=== PATIENT | male | born 1965 | race Caucasian/White ===

== ENCOUNTER 2016-07-08 08:46 | Emergency (ER) | payer BC ==
[2016-07-08 09:09] VITALS: BP 127/80
--- NOTE | 2016-07-08 09:27 | EDM.PDOC ---
ED HPI Trauma - General Chief Complaint: Lower Extremity Injury/Pain Stated Complaint: RIGHT LEG INJURY Time Seen by Provider: 07/08/16 09:22 Source: Reports: Patient History Limitations: Reports: No limitations - History of Present Illness INITIAL COMMENTS - FREE TEXT/NARRATIVE: 51-year-old male reports that he was in the coronal wrestling with a catheter this morning when he slipped on them and alert and essentially did the splits. He still felt a sudden popping tearing severe pain in the posterior aspect of his right thigh and was able to hobble back to the house where he called his . Currently he has severe pain in the posterior aspect of his right thigh. He is able to weight-bear although very gingerly on his tippy toes. Patient denies falling or developing any other injuries. Symptom Onset Date: 07/08/16 Symptom Onset Time: 07:10 Occurred When: this morning Occurred Where: home Method of Injury: other (Sensory slipped in mud and maneuver causing the splits essentially with acute injury to the posterior right thigh.) Severity: moderate Pain/Injury Location: Reports: upper extremity, right Consciousness: Reports: no loss of consciousness (Right posterior thigh), remembers incident, remembers coming to hosp Associated Symptoms: Reports: no other symptoms, trouble walking Allergies/ADRs: Allergies No Known Allergies Allergy (Verified 07/08/16 09:02) Home Medications: Ambulatory Orders Omeprazole [Prilosec] 20 mg PO DAILY 04/30/15 [Confirmed 07/08/16] Celecoxib [CeleBREX] 50 mg PO DAILY 07/08/16 [Confirmed 07/08/16] oxyCODONE HCl/Acetaminophen [Percocet 10-325 mg Tablet] 1 - 2 each PO Q4HR #24 tablet 07/08/16 Past Medical History - Past Health History Medical/Surgical History: Denies Medical/Surgical History Gastrointestinal History: Reports: GERD Musculoskeletal History: Reports: Osteoarthritis Social & Family History - Tobacco Use Smoking Status *Q: Never Smoker - Caffeine Use Caffeine Use: Reports: None - Recreational Drug Use Recreational Drug Use: No - Living Situation & Occupation Living situation: Reports: Occupation: employed (Self-employed [employer].) Review of Systems - Review of Systems Review Of Systems: See Below Constitutional: Reports: no symptoms Eyes: Reports: no symptoms Ears: Reports: no symptoms Nose: Reports: no symptoms Mouth/Throat: Reports: no symptoms Respiratory: Reports: No Symptoms Cardiovascular: Reports: no symptoms GI/Abdominal: Reports: No symptoms Genitourinary: Reports: no symptoms Musculoskeletal: Reports: no symptoms Skin: Reports: no symptoms Neurological: Reports: No Symptoms Psychiatric: Reports: no symptoms Trauma Exam - Physical Exam Exam: See Below Exam Limited By: No limitations General Appearance: Reports: alert, WD/WN, moderate distress Head: Reports: atraumatic, normocephalic Neck: Reports: non-tender, full range of motion, normal alignment, normal inspection Respiratory Exam: Reports: no respiratory distress, lungs clear, normal breath sounds, no accessory muscle use, chest non-tender Cardiovascular: Reports: normal peripheral pulses, regular rate, rhythm, no edema, no gallop, no murmur Back: Reports: full range of motion, normal inspection, non-tender. Denies: CVA tenderness (R), CVA tenderness (L) Extremities: Reports: no pedal edema, other (Examination of his right leg was done with him lying prone. He has an obvious hematoma in the posterior mid 5 that is approximately 12 inches in length and 6 inches in width. It is exquisitely tender to palpation. He is able to flex the knee to 90 with a moderate amount of pain. Therefore he has suffered an incomplete tear of the medial hamstring muscular muscles.) Neurologic: Reports: legal word processor II-XII nml as tested, no motor/sensory deficits, alert , normal mood/affect, oriented x 3 Skin: Reports: Normal color, Warm/dry Course - Vital Signs Last Recorded V/S: Last Vital Signs Temp 36.1 C 07/08/16 09:04 Pulse 60 07/08/16 09:04 Resp 12 07/08/16 09:04 BP 127/80 07/08/16 09:04 Pulse Ox 100 07/08/16 09:04 - Orders/Labs/Meds Orders: Active Orders 24 hr Category Date Time Status Femur Min 2V Rt [CR] Stat Exams 07/08/16 09:22 Taken - Radiology Interpretation Free Text/Narrative:: 51-year-old male presents the ED with an acute injury to the posterior aspect of his right thigh. Since this occurred while slipping and near fall while out in the [facility] morning capping. The sudden change of direction caused him to strain his right posterior medial hamstring muscles. He is a large hematoma in the posterior mid thigh. He is able to fully flex the knee posteriorly indicating a partial tear although significant by the size of the hematoma. of note he is 280 pounds as well. Plan x-ray of the femur will be obtained. He will then be wrapped with 6 inch Lul wraps to allow ice pack to the area one half hour of every 4 hours for the next 2 days. Pain medication. We'll have him followup with orthopedic surgery in 10 days' time. - Re-Assessments/Exams Free Text/Narrative Re-Assessment/Exam: 07/08/16 10:05 x-ray of the right femur is normal. Treatment is Lul wrap along the posterior thigh on all day today and all night. Then usually on during the day and off at night. Suggest use of this for the next week to 10 days. Ice pack to the area for one half hour of every 4 hours today and tomorrow to reduce swelling. May place heat on the area after this for one half hour out of every 4 hours until swelling is gone. Pain medication as needed Percocet 10 / 325 mg one or 2 every 4-6 hours as needed. Crutch walking nonweightbearing until able to weight-bear without pain. Suggest followup with orthopedic surgeon Dr. Menon today in 10 days' time. Please call [phone] to arrange a followup appointment. Departure - Departure Time of Disposition: 10:06 Disposition: Home, Self-Care 01 Condition: fair Clinical Impression: Right hamstring muscle strain Prescriptions: oxyCODONE HCl/Acetaminophen [Percocet 10-325 mg Tablet] 1 - 2 each PO Q4HR #24 tablet Instructions: Muscle Strain Referrals: PCP,None [Primary Care Provider] - Forms: ED Department Discharge Additional Instructions: Evaluation in the emergency day in regards to acute injury to the posterior right thigh. Examination reveals strain of the medial or 2 hamstring muscles on the posterior medial or inside of her thigh. X-ray of the femur bone shows no fractures. Large hematomas appreciated in the posterior aspect of the hamstring muscles indicating partial tear of the muscles with active bleeding in the deep tissues. Treatment is Lul wrap on during the day and off at night. Ice pack to the area one half hour out of every 4 hours today and tomorrow to reduce further swelling. After this she may apply heat to the area to help liquefy the blood and clean up the mess in the muscles.. Nonweightbearing crutch walking until able to weight-bear without hardly any pain. Pain medication Percocet 10 325 mg tablets one to 2 every 4-6 hours for pain relief. Suggest followup with orthopedic surgery Dr. Menon to [place] in 10-14 days time. Please call [phone] to arrange appointment. - My Orders Last 24 Hours: My Active Orders 07/08/16 09:22 Femur Min 2V Rt [CR] Stat - Assessment/Plan Last 24 Hours: My Active Orders 07/08/16 09:22 Femur Min 2V Rt [CR] Stat
--- NOTE | 2016-07-08 10:47 | CR ---
Right femur: AP and lateral views of the right femur were obtained. Joint space within the right hip is preserved. Joint spaces within the right knee are preserved. No fracture or other bony abnormality is seen. Impression: 1. No abnormality is identified on two-view right femur study. Diagnostic code #1
== END 2016-07-08 11:02 | disposition home or self-care (01) ==
LOC: JD.ED 08:46
DX: S76.311A Strain of muscle, fascia and tendon of the posterior muscle group at thigh level, right thigh, initial encounter (principal); K21.9 Gastro-esophageal reflux disease without esophagitis; Z79.899 Other long term (current) drug therapy; W01.0XXA Fall on same level from slipping, tripping and stumbling without subsequent striking against object, initial encounter; Y92.009 Unspecified place in unspecified non-institutional (private) residence as the place of occurrence of the external cause
CPT/HCPCS: 73552-26-RT; 73552-RT; 99283

== ENCOUNTER 2020-03-07 09:29 | Emergency (ER) | payer BC ==
[2020-03-07 09:43] VITALS: BP 137/94; PULSE 73
[2020-03-07] MEDS ORDERED: Witch Hazel Medicated Pads 40/Jar TOP ONE (10:01)
--- NOTE | 2020-03-07 10:13 | EDM.PDOC ---
ED HPI GENERAL MEDICAL PROBLEM - General Chief Complaint: Gastrointestinal Problem Stated Complaint: RECTAL BLEEDING Time Seen by Provider: 03/07/20 09:39 Source of Information: Reports: Patient History Limitations: Reports: No Limitations - History of Present Illness INITIAL COMMENTS - FREE TEXT/NARRATIVE: The patient presents with rectal pain and bleeding. This all started on Wednesday with pain and he noticed a hemorrhoid. He has been using preparation H and that has not been helping. He did a sits bath last night and this morning the hemorrhoid started bleeding. He still has pain and now bleeding. He has no fever, chills, cough, congestion, runny nose, chest pain or shortness of breath. Onset: Gradual Duration: Week(s): Location: Reports: Other (rectal pain) Quality: Reports: Sharp Severity: Moderate Improves with: Reports: None Worsens with: Reports: None Associated Symptoms: Reports: No Other Symptoms Rectal Pain Score (Numeric/FACES): 5 - Related Data Allergies Allergy/AdvReac Type Severity Reaction Status Date / Time No Known Allergies Allergy Verified 10/01/18 14:25 Home Meds: Home Meds Omeprazole [Prilosec] 20 mg PO DAILY 04/30/15 [History] Celecoxib [CeleBREX] 50 mg PO BID 07/08/16 [History] Hydrocodone/Acetaminophen [Hydrocodone-Acetamin 5-325 mg] 1 - 2 each PO Q6HR PRN #20 tablet 10/01/18 [Rx] Penicillin V Potassium 500 mg PO Q6HR #40 tab 10/01/18 [Rx] Past Medical History - Past Health History Medical/Surgical History: Denies Medical/Surgical History Gastrointestinal History: Reports: GERD Musculoskeletal History: Reports: Osteoarthritis Social & Family History - Tobacco Use Tobacco Use Status *Q: Never Tobacco User - Caffeine Use Caffeine Use: Reports: None - Living Situation & Occupation Living situation: Reports: Occupation: Employed ED ROS GENERAL - Review of Systems Review Of Systems: See Below Constitutional: Reports: No Symptoms HEENT: Reports: No Symptoms Respiratory: Reports: No Symptoms Cardiovascular: Reports: No Symptoms Endocrine: Reports: No Symptoms GI/Abdominal: Reports: Other (rectal pain and bleeding) : Reports: No Symptoms ED EXAM, GI/ABD - Physical Exam Exam: See Below Exam Limited By: No Limitations General Appearance: Alert, No Apparent Distress Ears: Normal External Exam Nose: Normal Inspection Head: Atraumatic, Normocephalic Neck: Normal Inspection Respiratory/Chest: No Respiratory Distress, Lungs Clear, Normal Breath Sounds Cardiovascular: Regular Rate, Rhythm, No Edema, No Murmur GI/Abdominal Exam: Soft, Non-Tender, No Organomegaly, No Mass Rectal (Males) Exam: Hemorrhoids (where distal part looks thrombosed and proximal part has bleeding) Course - Vital Signs Last Recorded V/S: Last Vital Signs Temp 97.6 F 03/07/20 09:41 Pulse 73 03/07/20 09:41 Resp 16 03/07/20 09:41 BP 137/94 H 03/07/20 09:41 Pulse Ox 97 03/07/20 09:41 - Orders/Labs/Meds Orders: Active Orders 24 hr Category Date Time Status CBC WITH AUTO DIFF [HEME] Stat Lab 03/07/20 10:25 Results Labs: Laboratory Tests 03/07/20 Range/Units 10:25 WBC 5.30 (4.23-9.07) K/mm3 RBC 5.32 (4.63-6.08) M/mm3 Hgb 12.2 L (13.7-17.5) gm/dl Hct 39.5 L (40.1-51.0) % MCV 74.2 L D (79.0-92.2) fl MCH 22.9 L (25.7-32.2) pg MCHC 30.9 L (32.2-35.5) g/dl RDW Std Deviation 43.8 (35.1-43.9) fL Plt Count 231 D (163-337) K/mm3 MPV 10.2 (9.4-12.3) fl Neut % (Auto) 52.3 (34.0-67.9) % Lymph % (Auto) 32.6 (21.8-53.1) % [place] % (Auto) 11.9 (5.3-12.2) % Eos % (Auto) 2.6 (0.8-7.0) Baso % (Auto) 0.4 (0.1-1.2) % Neut # (Auto) 2.77 (1.78-5.38) K/mm3 Lymph # (Auto) 1.73 (1.32-3.57) K/mm3 [place] # (Auto) 0.63 (0.30-0.82) K/mm3 Eos # (Auto) 0.14 (0.04-0.54) K/mm3 Baso # (Auto) 0.02 (0.01-0.08) K/mm3 Meds: Medications Discontinued Medications Generic Name Dose Route Start Last Admin Trade Name Trav PRN Reason Stop Dose Admin Witch Vitaly 1 pad 03/07/20 10:01 Tucks TOP 03/07/20 10:02 ONETIME ONE - Re-Assessments/Exams Free Text/Narrative Re-Assessment/Exam: 03/07/20 10:[address] Bautista and she can see him tomorrow. Someone from her office will call the patient. She wants him on sits baths, stool softener, steroid suppository, and tucks pads. I called [facility] pharmacy and they make rectal rockets with hydrocortisone and lidocaine. She also wanted a CBC checked so I will check that now. 03/07/20 10:47 His Hgb was good at 12.2. Departure - Departure Time of Disposition: 10:45 Disposition: Home, Self-Care 01 Condition: Good Clinical Impression: Hemorrhoid Qualifiers: Hemorrhoid type: unspecified Qualified Code(s): K64.9 - Unspecified hemorrhoids - Discharge Information *PRESCRIPTION DRUG MONITORING PROGRAM REVIEWED*: Not Applicable *COPY OF PRESCRIPTION DRUG MONITORING REPORT IN PATIENT PRABHAKAR: Not Applicable Referrals: PCP,None [Primary Care Provider] - Lily-Jaymie Mcintyre MD [Physician] - 1 Day Forms: ED Department Discharge Additional Instructions: Drink plenty of fluids. Take a stool softener like colace. Use Tucks pads with witch vitaly and follow label instructions. Do sits baths at 2 to 3 times per day or after every bowel movement. Use the rectal rocket rectally at night. You can start it when you get home today. Someone from Dr Bautista's office will be calling you today for an appointment tomorrow. If you do not hear from them by 2pm today give her office a call at . Please return if you are worse. Sepsis Event Note (ED) - Evaluation Sepsis Screening Result: No Definite Risk - Focused Exam Vital Signs: Vital Signs Temp Pulse Resp BP Pulse Ox 03/07/20 09:41 97.6 F 73 16 137/94 H 97 - My Orders Last 24 Hours: My Active Orders 03/07/20 10:25 CBC WITH AUTO DIFF [HEME] Stat - Assessment/Plan Last 24 Hours: My Active Orders 03/07/20 10:25 CBC WITH AUTO DIFF [HEME] Stat
== END 2020-03-07 10:58 | disposition home or self-care (01) ==
LOC: JD.ED 09:29
DX: K64.9 Unspecified hemorrhoids (principal); K21.9 Gastro-esophageal reflux disease without esophagitis; M19.90 Unspecified osteoarthritis, unspecified site; Z79.899 Other long term (current) drug therapy
CPT/HCPCS: 36415; 85025; 99283; A9270

== ENCOUNTER 2023-04-24 10:11 | Emergency (ER) | payer BC ==
[2023-04-24] MEDS ORDERED: Acetaminophen/HYDROcodone 325-5 MG Tab PO ONE (10:48)
[2023-04-24 13:27] VITALS: BP 124/67; PULSE 86
== END 2023-04-24 13:14 | disposition home or self-care (01) ==
LOC: JD.ED 10:11
DX: S29.9XXA Unspecified injury of thorax, initial encounter (principal); M54.50 Low back pain, unspecified; M54.6 Pain in thoracic spine; W01.0XXA Fall on same level from slipping, tripping and stumbling without subsequent striking against object, initial encounter
CPT/HCPCS: 71250; 74176; 99283; A9270

== ENCOUNTER 2023-05-24 06:28 | Emergency (ER) | payer BC ==
[2023-05-24 06:44] VITALS: BP 156/89; PULSE 78
[2023-05-24] MEDS: Ketorolac 30 MG/ML SDV IM ONE (07:52)
[2023-05-24] MEDS: Ondansetron 4 MG Tab.DIS PO ONE (07:52)
[2023-05-24 08:10] LABS: APPEARANCE,URINE CLEAR (Clear); BILIRUBIN,URINE NEGATIVE (Negative); COLOR,URINE YELLOW (Yellow); GLUCOSE,URINE NEGATIVE (Negative); KETONES,URINE NEGATIVE (Negative); LEUKOCYTE ESTERASE,URINE NEGATIVE (Negative); NITRITE,URINE NEGATIVE (Negative); OCCULT BLOOD,URINE NEGATIVE (Negative); PH,URINE 6.5 (5.0-8.0); PROTEIN,URINE NEGATIVE (Negative); UROBILINOGEN,URINE 0.2 (0.2-1.0)
[2023-05-24 08:16] LABS: BASOPHILS ABSOLUTE AUTO 0.1 K/mm3 (0.0-0.2); BASOPHILS PERCENT AUTO 1.2 % (0.0-1.0); EOSINOPHILS ABSOLUTE AUTO 0.1 K/mm3 (0.0-0.4); EOSINOPHILS PERCENT AUTO 2.5 % (0.0-6.0); HEMATOCRIT 49.8 % (42.0-52.0); HEMOGLOBIN 17.4 gm/dl (14.0-18.0); IMMATURE GRAN ABSOLUTE AUTO 0.02 K/mm3 (0.00-0.05); IMMATURE GRAN PERCENT AUTO 0.4 % (0.0-0.4); LYMPHOCYTES ABSOLUTE AUTO 1.9 K/mm3 (1.0-4.8); LYMPHOCYTES PERCENT AUTO 33.5 % (24.0-44.0); MEAN CORPUSCULAR HEMOGLOBIN 31.5 pg (28.0-32.0); MEAN CORPUSCULAR HGB CONC 34.9 g/dl (32.0-36.0); MEAN CORPUSCULAR VOLUME 90.1 fl (83.0-99.0); MEAN PLATELET VOLUME 10.5 fl (9.4-12.4); MONOCYTES ABSOLUTE AUTO 0.6 K/mm3 (0.0-0.8); MONOCYTES PERCENT AUTO 10.2 % (0.0-8.0); NEUTROPHILS PERCENT AUTO 52.2 % (41.0-71.0); PLATELET COUNT,PLT 205 K/mm3 (150-400); RED BLOOD CELL COUNT 5.53 M/mm3 (4.52-5.90); WHITE BLOOD CELL COUNT,WBC 5.71 K/mm3 (3.9-11.3)
[2023-05-24 08:29] LABS: A/G RATIO 1.1 (1-2); ALBUMIN 4.3 g/dl (3.4-5.0); ANION GAP 15.3 (5-15); BILIRUBIN TOTAL 0.5 mg/dL (0.2-1.0); BUN/CREATININE RATIO 8.2 (14-18); CALCIUM 9.3 mg/dL (8.5-10.1); CREATININE 1.1 mg/dL (0.7-1.3); EST CRCL DRUG DOSING (CG) 84.74 mL/min; POTASSIUM,K 4.3 mEq/L (3.5-5.1); PROTEIN TOTAL,TP 8.2 g/dl (6.4-8.2)
[2023-05-24 08:40] LABS: BACTERIA,URINE FEW /hpf (FEW); MUCUS,URINE MODERATE /hpf (FEW); RBC,URINE 0-5 /hpf (0-5); SQUAMOUS EPITHELIAL CELLS,UR 0-5 /hpf (0-5); WBC,URINE 0-5 /hpf (0-5)
== END 2023-05-24 09:30 | disposition home or self-care (01) ==
LOC: JD.ED 06:28
DX: R10.9 Unspecified abdominal pain (principal)
CPT/HCPCS: 36415; 74176; 80053; 81001; 83690; 85025; 96372; 99284; A9270; J1885

== ENCOUNTER 2023-08-10 13:33 | Emergency (ER) | payer BC ==
[2023-08-10 14:40] LABS: BASOPHILS ABSOLUTE AUTO 0.1 K/mm3 (0.0-0.2); BASOPHILS PERCENT AUTO 0.7 % (0.0-1.0); EOSINOPHILS ABSOLUTE AUTO 0.1 K/mm3 (0.0-0.4); EOSINOPHILS PERCENT AUTO 0.8 % (0.0-6.0); HEMATOCRIT 47.3 % (42.0-52.0); HEMOGLOBIN 16.2 gm/dl (14.0-18.0); IMMATURE GRAN ABSOLUTE AUTO 0.05 K/mm3 (0.00-0.05); IMMATURE GRAN PERCENT AUTO 0.4 % (0.0-0.4); LYMPHOCYTES ABSOLUTE AUTO 2.1 K/mm3 (1.0-4.8); LYMPHOCYTES PERCENT AUTO 16.4 % (24.0-44.0); MEAN CORPUSCULAR HEMOGLOBIN 31.4 pg (28.0-32.0); MEAN CORPUSCULAR HGB CONC 34.2 g/dl (32.0-36.0); MEAN CORPUSCULAR VOLUME 91.7 fl (83.0-99.0); MEAN PLATELET VOLUME 9.9 fl (9.4-12.4); MONOCYTES ABSOLUTE AUTO 0.9 K/mm3 (0.0-0.8); MONOCYTES PERCENT AUTO 7.3 % (0.0-8.0); NEUTROPHILS ABSOLUTE AUTO 9.5 K/mm3 (1.8-7.7); NEUTROPHILS PERCENT AUTO 74.4 % (41.0-71.0); PLATELET COUNT,PLT 250 K/mm3 (150-400); RED BLOOD CELL COUNT 5.16 M/mm3 (4.52-5.90); WHITE BLOOD CELL COUNT,WBC 12.79 K/mm3 (3.9-11.3)
[2023-08-10 15:05] LABS: ANION GAP 12.3 (5-15); BILIRUBIN TOTAL 0.7 mg/dL (0.2-1.0); BUN/CREATININE RATIO 8.6 (14-18); C-REACTIVE PROTEIN 2.94 mg/dL (<0.30); CALCIUM 9.4 mg/dL (8.5-10.1); CREATININE 1.4 mg/dL (0.7-1.3); EST CRCL DRUG DOSING (CG) 64.67 mL/min; POTASSIUM,K 4.3 mEq/L (3.5-5.1); PROTEIN TOTAL,TP 8.1 g/dl (6.4-8.2); URIC ACID 6.3 mg/dL (3.5-7.2)
[2023-08-10] MEDS: cefTRIAXone 1 GM, Lidocaine 1% 2.1 ML IM ONE (16:11)
[2023-08-10] MEDS: Acetaminophen/HYDROcodone 325-5 MG Tab PO ONE (16:11)
[2023-08-10 19:23] VITALS: BP 141/87; PULSE 85
== END 2023-08-10 16:20 | disposition home or self-care (01) ==
LOC: JD.ED 13:33
DX: L03.116 Cellulitis of left lower limb (principal)
CPT/HCPCS: 36415; 73564; 80053; 84550; 85025; 85652; 86140; 96372; 99283; A9270; J0696; J3490